=== PATIENT | female | born 1980 | race Caucasian/White ===

== ENCOUNTER 2023-05-16 14:21 | Emergency (ER) | payer OTHER, SELFPAY ==
--- NOTE | ~2023-05-16 | XR_ITS ---
EXAMINATION: XR chest 2V 05/16/2023 16:13 INDICATION: Right posterior back pain. History of kidney infection. PROCEDURE: 2 view chest COMPARISON: No prior studies for comparison. FINDINGS: The lungs are clear. The cardiomediastinal silhouette is within normal limits. There are no pleural effusions. There is no pneumothorax suspected. IMPRESSION: 1: NO ACUTE CARDIOPULMONARY DISEASE. Reviewed, dictated and finalized at location A. 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
--- NOTE | ~2023-05-16 | CT_ITS ---
EXAMINATION: CT abdomen pelvis w con DATE: 05/16/2023 16:12 INDICATION: Abdominal pain TECHNIQUE: Computed tomography (CT) of the abdomen and pelvis was performed with 100 cc Omnipaque 350 intravenous contrast. The dose-length product was 267.34 mGy-cm. Automated exposure control and iter ative reconstruction technique were employed. COMPARISON: None. FINDINGS: Lung bases unremarkable. Heart size normal. No significant pleural or pericardial effusion. The liver, spleen, pancreas, adrenal glands and kidneys are unremarkable. Gallbladder is present. No nobstructive bowel gas pattern. There is a 1.7 cm left ovarian cyst. No free fluid or free air. Colon ic diverticulosis without evidence for diverticulitis. No significant vascular abnormality. No lympha denopathy. Gallbladder is present. No acute osseous abnormality. IMPRESSION: 1. No acute abdominal abnormality. Reviewed, dictated and finalized at location A. ET ATTENDANT
[2023-05-16 14:23] VITALS: BP 114/77; PULSE 80; RESP 16; TEMP 36.3; O2SAT 100
--- NOTE | 2023-05-16 14:53 | ED.ABDPAIN ---
HPI - Abdominal Pain General Chief Complaint: Abdominal Pain Stated Complaint: KNOWN KIDNEY INFECTION, ABD PAIN Time Seen by Provider: 05/16/23 14:52 Source: patient History of Present Illness HPI narrative: 43 YEARS OLD FEMALE PRESENTS WITH RIGHT FLANK PAIN STARTED 1 WEEK AGO, TESTED POSITIVE FOR URINARY TRACT INFECTION 3 DAYS AGO AND STARTED ON CIPRO WITHOUT IMPROVEMENT. PATIENT REPORTED NO AGGRAVATING OR RELIEVING FACTORS. SHE DENIES ANY FEVER, CHILLS, NAUSEA, VOMITING, DIARRHEA, CONSTIPATION. PATIENT DENIES ANY RECENT PHYSICAL ACTIVITIES. PATIENT DROVE HERSELF TO THE EMERGENCY ROOM Related Data Allergies Allergy/AdvReac Type Severity Reaction Status Date / Time No Known Allergies Allergy Unverified 04/20/17 17:50 Review of Systems Review of Systems: All systems reviewed & are unremarkable except as noted in HPI and below Exam Narrative: GENERAL APPEARANCE: WELL-DEVELOPED, WELL-NOURISHED SKIN: NORMAL COLOR HEAD: NORMOCEPHALIC, NONTRAUMATIC EYES: CLEAR CONJUNCTIVA ENT: OROPHARYNX NORMAL, EARS NORMAL, NOSE NORMAL NECK: SUPPLE, NONTENDER CHEST AND RESPIRATORY: AIRWAY PATENT, NO RESPIRATORY DISTRESS, NO ACCESSORY MUSCLE USE. DIFFUSE TENDERNESS RIGHT THORACIC BACK, NO BRUISES OR RASH HEART: REGULAR RATE/RHYTHM ABDOMEN: SOFT, DIFFUSE TENDERNESS RIGHT LOWER QUADRANT, RIGHT UPPER QUADRANT, NO GUARDING REBOUND, QUITE BOWEL SOUNDS. VASCULAR: NORMAL PERIPHERAL PULSES, NORMAL CAPILLARY REFILL. MUSCULOSKELETAL: NORMAL RANGE OF MOTION, NONTENDER BACK NEUROLOGIC: ALERT AND ORIENTED ?3, VENDOR MANAGEMENT CONSULTANT IS NORMAL TESTED, NO GROSS MOTOR DEFICIT Course Reevaluation(s) Reevaluation #1: FEELING MUCH BETTER AFTER IV MORPHINE AND ZOFRAN. Date: 05/16/23 Time: 15:49 Vital Signs Vital signs: Vital Signs Temperature 36.3 C L 05/16/23 14:23 Pulse Rate 80 05/16/23 14:23 Respiratory Rate 16 05/16/23 14:23 Blood Pressure 114/77 05/16/23 14:23 Pulse Oximetry 100 05/16/23 14:23 Oxygen Delivery Room Air 05/16/23 14:23 Temperature 37.1 C 05/16/23 15:23 Pulse Rate 73 05/16/23 15:23 Respiratory Rate 19 05/16/23 15:23 Blood Pressure 107/62 05/16/23 15:23 Pulse Oximetry 99 05/16/23 15:23 Oxygen Delivery Room Air 05/16/23 15:23 MDM - Abdominal Pain MDM Narrative Medical decision making narrative: PATIENT PRESENTS WITH THE ABOVE SYMPTOMS, VITAL SIGNS STABLE, PHYSICAL EXAMINATION SHOWED MILD TO MODERATE TENDERNESS RIGHT ABDOMEN, RIGHT FLANK, RIGHT THORACIC BACK, DIFFERENTIAL DIAGNOSIS, APPENDICITIS, DIVERTICULITIS, CHOLECYSTITIS, PNEUMONIA, KIDNEY STONE, URINARY TRACT INFECTION BLOOD WORKUP TODAY SHOWED NO SIGNIFICANT ABNORMALITY TO EXPLAIN PATIENT'S CONDITION, CHEST X-RAY AND CT ABDOMEN AND PELVIS WITH IV CONTRAST SHOWED NO ACUTE ABNORMALITIES. PATIENT WAS ADVISED TO TAKE TYLENOL, IBUPROFEN NEEDED, MUSCULAR PAIN IS A POSSIBILITY. Differential Diagnosis Differential diagnosis: Likely abdominal pain, acute appendicitis, calculus of kidney, constipation and diverticulitis Medical Records Attestation: I reviewed the patient's medical records. Lab Data Attestation: I reviewed the patient's lab results. 05/16/23 15:09 05/16/23 15:09 Labs: Lab Results 05/16/23 05/16/23 Range/Units 15:09 17:20 WBC 8.0 (4.5-10.0) K/mm3 RBC 4.33 (4.2-5.4) M/mm3 Hgb 10.1 L (12.0-15.0) g/dL Hct 34.0 L (37.0-47.0) % MCV 78.5 L (80-100) fl MCH 23.3 L (26-34) pg MCHC 29.7 L (32-36) g/dl RDW 15.5 H (11.5-14.5) % Plt Count 368 (150-375) k/mm3 MPV 11.1 H (7.4-10.4) fl Immature Gran % (Auto) 0.2 (0-0.5) % Neut % (Auto) 64.8 (45.5-73.1) % Lymph % (Auto) 26.9 (18.3-
[2023-05-16] MEDS: SODIUM CHLORIDE 0.9% IV 1,000 ML 999 ML IV CONT (15:13)
[2023-05-16] MEDS: ONDANSETRON INJ 4 MG/2 ML VIAL IV PUSH (15:15)
[2023-05-16] MEDS: MORPHINE SULFATE (*CRX) 4 MG/ML INJ IV PUSH (15:15)
[2023-05-16 15:19] LABS: Basophils Percent Auto 0.5 % (0.2-1.2); Eosinophils Absolute Auto 0.2 K/mm3 (0-0.3); Hemoglobin 10.1 g/dL (12.0-15.0); Immature Granulocyte Absolute 0.02 K/mm3 (0.00-0.031); Immature Granulocyte Percent A 0.2 % (0-0.5); Lymphocytes Absolute Auto 2.16 K/mm3 (0.9-3.2); Lymphocytes Percent Auto 26.9 % (18.3-44.2); Mean Corpuscular HGB Conc 29.7 g/dl (32-36); Mean Corpuscular Hemoglobin 23.3 pg (26-34); Mean Corpuscular Volume 78.5 fl (80-100); Mean Platelet Volume 11.1 fl (7.4-10.4); Monocytes Absolute Auto 0.5 K/mm3 (0.1-0.6); Monocytes Percent Auto 5.6 % (2.6-8.5); Neutrophils Absolute Auto 5.2 K/mm3 (1.3-6.7); Neutrophils Percent Auto 64.8 % (45.5-73.1); Platelet Count Result 368 k/mm3 (150-375); Red Blood Count 4.33 M/mm3 (4.2-5.4); Red Cell Distribution Width 15.5 % (11.5-14.5)
[2023-05-16 15:23] VITALS: BP 107/62; PULSE 73; RESP 19; TEMP 37.1; O2SAT 99
[2023-05-16 15:36] LABS: Hypochromasia 1+ (NORMAL); Platelet Estimate Adequate (Adequate)
[2023-05-16 15:37] LABS: Ovalocytes 1+ (NORMAL)
[2023-05-16 15:39] LABS: Alanine Aminotransferase 19 U/L (6-35); Alkaline Phosphatase 66 U/L (38-126); Anion Gap 7 mmol/L (8-16); Aspartate Amino Transferase 29 U/L (14-36); Bilirubin,Total 0.3 mg/dL (0.2-1.3); Blood Urea Nitrogen 13 mg/dL (7-17); Carbon Dioxide 25 mmol/L (22-30); Chloride 106 mmol/L (98-107); Estimated Glomerular Filt Rate > 60; Glucose 99 mg/dL (65-110); Lipase 112 U/L (23-300); Potassium 3.7 mmol/L (3.4-5.0); Sodium 138 mmol/L (137-145)
[2023-05-16 15:45] LABS: Schistocytes None Seen (NORMAL)
[2023-05-16 17:38] LABS: Appearance Urine Turbid (Clear); Bacteria Urine None Seen /hpf; Bilirubin Urine Negative (Negative); Blood Urine 1+ (Negative); Color Urine Yellow (Yellow); Glucose Urine UA Negative (Negative); Ketones Urine Negative (Negative); Leukocyte Esterase Ur Negative LEU/UL (Negative); Nitrate Urine Negative (Negative); Non Pathogenic Casts 0-2; Protein Urine Negative (Negative); Specific Grav Ur 1.011 (1.001-1.035); Squamous Epithelial Cell Urine Occasional /hpf (Few); Urobilinogen Urine 0.2 mg/dL (<2.0); WBC Urine 0-5 /hpf; pH Urine 7.5 (5.0-9.0)
[2023-05-16 17:39] LABS: Add Urine Microscopic? YES
[2023-05-16 18:00] VITALS: BP 114/79; PULSE 69; RESP 20; O2SAT 100
== END 2023-05-16 18:01 | disposition home or self-care (01) ==
PROVIDERS: Emergency Provider Emergency Medicine; PCP Family Medicine
DX: R10.9 Unspecified abdominal pain (principal)
CPT/HCPCS: 36415; 71046; 74177; 80053; 81001; 81025; 83690; 85025; 96361; 96374; 96375; 99284; J2270; J2405; J7030; Q9967

== ENCOUNTER 2025-03-23 09:57 | Emergency (ER) | payer OTHER, SELFPAY ==
--- NOTE | ~2025-03-23 | XR_ITS ---
Examination: XR ankle LT min 3V Clinical History: injury Comparison: None Technique: 4 views left ankle Findings/impression: 1. No fracture or dislocation left ankle. 2. Ankle mortise maintained. 3. Lateral soft tissue swelling Reviewed, dictated and finalized at location R.
[2025-03-23 10:02] VITALS: BP 116/63; PULSE 71; RESP 14; TEMP 36.6; O2SAT 100
--- NOTE | 2025-03-23 11:02 | ED_ITS ---
HPI - Extremity Injury (Lower) General Chief Complaint: Extremity Injury, Lower Stated Complaint: left ankle injury Time Seen by Provider: 03/23/25 10:45 History of Present Illness HPI Narrative: Patient is a 44-year-old female who presents ER with left ankle pain. She was stepping off a curb when she rolled her ankle last night. She fell forward. No other injury. No numbness or tingling. Has pain with bearing weight and has swelling today. Related Data Allergies Allergy/AdvReac Type Severity Reaction Status Date / Time No Known Allergies Allergy Verified 03/23/25 10:17 Review of Systems Constitutional: Constitutional: Reports no additional constitutional complaints Musculoskeletal: Musculoskeletal: Reports no additional musculoskeletal complaints Neurologic: Reports system reviewed and no additional complaints, except as documented PMFSH Past Medical History Medical History (Updated 03/23/25 @ 11:05 by Ranjit Erickson MD) Healthy female adult Surgical History Surgical History (Updated 03/23/25 @ 11:02 by Ranjit Erickson MD) No history of previous surgery Exam Narrative: GENERAL: Well-appearing, well-nourished, and in no acute distress. HEAD: Normocephalic, atraumatic. HEART: Regular rate and rhythm. Normal peripheral pulses. EXTREMITIES: Normal range of motion. No edema. Swelling of the soft tissue over the lateral malleolus of the left ankle and mildly anteriorly. Neurovascular intact SKIN: Warm, dry, no rash. NEURO: Alert and oriented x3. PSYCH: Normal mood and affect. Course Course Emergency Course: Informed of results. Given reassurance. Discussed outpatient splint purchase Vital Signs Vital signs: Vital Signs Temperature 97.8 F 03/23/25 10:02 Pulse Rate 71 03/23/25 10:02 Respiratory Rate 14 03/23/25 10:02 Blood Pressure 116/63 03/23/25 10:02 Pulse Oximetry 100 03/23/25 10:02 Oxygen Delivery Room Air 03/23/25 10:02 Temperature 97.8 F 03/23/25 10:02 Pulse Rate 71 03/23/25 10:02 Respiratory Rate 14 03/23/25 10:02 Blood Pressure 116/63 03/23/25 10:02 Pulse Oximetry 100 03/23/25 10:02 Oxygen Delivery Room Air 03/23/25 10:02 MDM - Extremity Injury (Lower) Differential Diagnosis Differential diagnosis: Likely ankle sprain and strain and ankle fracture Imaging Data Radiologist's impression: Examination: XR ankle LT min 3V Clinical History: injury Comparison: None Technique: 4 views left ankle Findings/impression: 1. No fracture or dislocation left ankle. 2. Ankle mortise maintained. 3. Lateral soft tissue swelling Reviewed, dictated and finalized at location R. Discharge Plan Discharge Clinical Impression: Ankle sprain and strain Patient Disposition: Home Condition: Stable Instructions: Ankle Sprain (ED), P.R.I.C.E. Treatment (ED) Additional Instructions: Return the ER if you have new injury, you have chest pain shortness of breath, or you have additional concerns. Take ibuprofen or naproxen for pain. Purchase a splint for stability/support. Patient Language: Solomon Islander Follow-up/Referrals: Cami,Shalom Melgar MD [Primary Care Provider] - 1 Week
--- OUTSIDE RECORDS SUMMARY | 2025-03-23 11:13 | XMS_ITS | Encounter Summary ---
Author Organization [facility] Address [address] [place] [id number] Care Team Providers Care Utility Worker [place] Name Role Phone Shalom Almanza MD Primary Care Provider [phone] Encounter Details Date Type Department Care Team (Latest Contact Info) Description 03/28/2018 Abstract [facility] Terrence Paiz MD Social History Tobacco Use Types Packs/Day Years Used Date Smoking Tobacco: Never Assessed Comments Unknown Sex and Gender Information Value Date Recorded Sex Assigned at Female 06/21/2024 2:42 PM HOME SALES CONSULTANT Legal Sex Female 8:07 PM CDT Gender Identity Female 06/21/2024 2:42 PM HOME SALES CONSULTANT Sexual Orientation Not on file documented as of this encounter Plan of Treatment Not on file documented as of this encounter Visit Diagnoses Not on filedocumented in this encounter Additional Health Concerns Infection Onset Date Last Indicated Resolved Time COVID-19 Rule Out 06/18/2020 06/18/2020 06/19/2020 7:50 PM HOME SALES CONSULTANT COVID-19 Rule Out 02/17/2024 02/17/2024 02/17/2024 11:05 AM CDT Respiratory Rule Out 11/09/2024 11/09/2024 025 9:25 AM CDT documented as of this encounter Care Teams Utility Worker [place] [place] Relationship Specialty Start Date End Date Shalom Almanza MD [address] [facility] [address] [place] [address] PCP - General FAMILY PRACTICE 06/06/17 documented as of this encounter
--- OUTSIDE RECORDS SUMMARY | 2025-03-23 11:15 | XMS_ITS | Data Portability ---
Author Organization [facility] [employer] , [facility] Address [address] [place] [address] Assessment Encounter Date Assessment Date Assessment LastModified by Organization Details LastModified Time 07/17/2021 07/17/2021 41 y.o. here for annual exam. - Pap /HPV and sti screening collected. discussed natural course of HPV infection, ASCCP guidelines. - Contraceptive counseling: Tubal - Routine labs done with PCP - Mammo needed. - RTO for annual or PRN [email or web address] Not available 07/17/2021 15:50:19 Plan of Treatment Reminders Order Date Submit Date Provider Last Modified By Organization Details Last Modified Time Details Appointments None recorded. Lab pap, IG + CT/NG/TV + HPV mRNA E6/E7 2021 022 [employer] [facility], [address], [place], [address], 13:33:43 Referral None recorded. Procedures None recorded. Surgeries None recorded. Imaging None recorded. Medication Orders ibuprofen 800 mg tablet 2023 025 [id number], [address], [place], [place], [id number], 5 10:18:37 Patient TargetsNo targets recorded. Patient Instructions Encounter Date Encounter Id Patient Instructions Last Modified By Organization Details Last Modified Time 07/17/2021 [id number] Discussed pap guidelines. Reviewed contraceptive options if desired. If desired, STI testing options discussed with patient, including limitations of HSV testing. Encourage patient to see PCP/dermatology yearly. Encouraged healthy habits including healthy diet and exercise with limited alcohol use. Refrain from smoking, vaping, and the use of recreational drugs. Will plan to notify patient of results via the portal, if applicable. [email or web address] Not available 07/17/2021 15:14:00 03/05/2024 [id number] A healthy lifestyle: care instructions [email or web address] Not available 03/05/2024 13:03:18 Following the [employer] Food Guide: Care Instructions [email or web address] Not available 03/05/2024 13:03:18 exercise program : getting started bnotzke Not available 03/05/2024 13:03:18 dysmenorrhea education bnotzke Not available 03/05/2024 13:03:18 painful menstrua l cramps: care instructions [email or web address] Not available 03/05/2024 13:03:18 control counseling bnotzke Not available 03/05/2024 13:03:18 Reason for Referral None Reported. Results Created Date Observation Date Name Description Value Unit Range Abnormal Flag Note LastModifiedBy Organization Detail LastModifiedTime 07/17/19 22 07/21/2021 THINP REP TIS PAP AND HPV MRNA E6/E7 , CT/NG , TRICH clinical information: normal Infor matio n not provi ded Not Available [address], [address], 07/21/2021 13:33:43 07/17/19 22 07/21/2021 THINP REP TIS PAP AND HPV MRNA E6/E7 , CT/NG , TRICH LMP: normal NONE GIVEN Not Available [address], [address], 07/21/2021 13:33:43 07/17/19 22 07/21/2021 THINP REP TIS PAP AND HPV MRNA E6/E7 , CT/NG , TRICH prev. Pap: normal NONE GIVEN Not Available [address], [address], 07/21/2021 13:33:43 07/17/19 22 07/21/2021 THINP REP TIS PAP AND HPV MRNA E6/E7 , CT/NG , TRICH prev. BX: normal NONE GIVEN Not Available [facility] [address] [place], [address], 07/21/2021 13:33:43 07/17/19 22 07/21/2021 THINP REP TIS PAP AND HPV MRNA E6/E7 , CT/NG , TRICH source: normal None given Not Available [address] [address] [place], [address], 07/21/2021 13:33:43 07/17/19 22 07/21/2021 THINP REP TIS PAP AND HPV MRNA E6/E7 , CT/NG , TRICH statement of adequacy: normal Satis facto ry for evalu ation . Endoc ervic al/tr ansfo rmati on zone compo nent prese nt. Age and/o r menst rual statu s not provi ded Not Available [address] [address] [place], [address], 07/21/2021 13:33:43 07/17/19 22 07/21/2021 THINP REP TIS PAP AND HPV MRNA E6/E7 , CT/NG , TRICH interpretati on/result: normal Negat jan for intra epith elial lesio n or peyton alberto . Not Available [facility] [address] [place], [address], 07/21/2021 13:33:43 07/17/19 22 07/21/2021 THINP REP TIS PAP AND HPV MRNA E6/E7 , CT/NG , TRICH comment: normal This Pap test has been evalu ated with compu ter [employer] . Not Available [address] [place], [address], 07/21/2021 13:33:43 07/17/19 22 07/21/2021 THINP REP TIS PAP AND HPV MRNA E6/E7 , CT/NG , TRICH cytotechnolo gist: normal ESPINAL, CT( CP) CT Scree leta locat ion: [id number] [place] [address] Not Available [facility] [address] [place], [address], 07/21/2021 13:33:43 07/17/19 22 07/21/2021 THINP REP TIS PAP AND HPV MRNA E6/E7 , CT/NG , TRICH comment EXPLA NATOR Y NOTE: The Pap is a scree leta test for cervi kevin cance r. It is not a diagn ostic test and is subje ct to false negat jan and false posit jan resul ts. It is most relia ble when a satis facto ry sampl e, regul marj obtai dmitri, is submi tted with relev ant clini kevin findi ngs and histo ry, and when the Pap resul t is evalu ated along with histo holly and curre nt clini kevin infor matio n. Not Available [facility] [address] [place], [address], 07/21/2021 13:33:43 07/17/19 22 07/21/2021 THINP REP TIS PAP AND HPV MRNA E6/E7 , CT/NG , TRICH HPV MRNA E6/E7 Not Detect ed not detect ed normal Metho dolog y: Trans cript ion-M ediat ed Ampli ficat ion This assay detec ts E6/E7 viral messe nger RNA (mRNA ) from 14 high- risk HPV types (16,1 8,31, 33,35 ,39,4 5,51, 52,56 ,58,5 9,66, 68). The kendal tical perfo rmanc e josh cteri stics of this assay have been deter mined by [facility]. The modif icati ons have not been clear ed or appro wally by the FDA. This assay has been valid ated pursu ant to the CLIA regul ation s and is used for clini kevin purpo ses. For addit ional infor richie grimaldo e refer to http: //jose juan cordero.que stdia gnost ics.c om/fa q/FAQ 129v1 (This link if provi ded for infor heather cordero/ educa eduardo l purpo ses only. ) Not Available [facility] [address] [address] [place], [address], 07/21/2021 13:33:43 07/17/19 22 07/21/2021 THINP REP TIS PAP AND HPV MRNA E6/E7 , CT/NG , TRICH chlamydia trachomatis RNA, tma, urogenital NOT DETECT ED not detect ed normal Not Available [facility] [address] [address] [place], [address], 07/21/2021 13:33:43 07/17/19 22 07/21/2021 THINP REP TIS PAP AND HPV MRNA E6/E7 , CT/NG , TRICH neisseria gonorrhoeae RNA, tma, urogenital NOT DETECT ED not detect ed normal Not Available [facility] [address] [address] [place], [address], 07/21/2021 13:33:43 07/17/19 22 07/21/2021 THINP REP TIS PAP AND HPV MRNA E6/E7 , CT/NG , TRICH comment The kendal tical perfo rmanc e josh cteri stics of this assay , when used to test SureP ath(T M) speci mens have been deter mined by [facility]. The modif icati ons have not been clear ed or appro wally by the FDA. This assay has been valid ated pursu ant to the CLIA regul ation s and is used for clini kevin purpo ses. For addit ional infor richie grimaldo e refer to https ://ed ucati on.qu alberto [employer]. com/f aq/FA Q154 (This link is being provi ded for infor heather cordero/ clair merino purpo ses only. ) Not Available [facility] [address] [address] [place], [address], 07/21/2021 13:33:43 07/17/19 22 07/21/2021 THINP REP TIS PAP AND HPV MRNA E6/E7 , CT/NG , TRICH trichomonas vaginalis, ql tma, Pap vial NOT DETECT ED not detect ed normal The kendal tical perfo rmanc e josh cteri stics of this assay have been deter mined by [facility]. The modif icati ons have not been clear ed or appro wally by the FDA. This assay has been valid ated pursu ant to the CLIA regul ation s and is used for clini kevin purpo ses. For addit ional infor richie grimaldo refer to http: //[facility] jaden cordero.que stdia gnost ics.c om/ faq/T eleazar birch tma (This link is being provi ded for infor heather cordero/ educa eduardo l purpo ses only. ) Not Available [employer] [facility] [address] [place], [place] [address], [address], 07/21/2021 13:33:43 Result Notes None recorded. Problems Name Problem SNOMED Code Status Onset Date Resolution Date Notes Provider Name and Address Organization Details Recorded Time Pain of breast 26138294 Completed 201210/19/2012 Breast tenderne ss; Progress : Stable Added By: Greg Mckee Add to Current Problems : NO ProblemS tatus: Resolve Not Available [facility] 2 22:11:45 Nausea and vomiting [id number] Completed 201202/14/2013 Nausea and vomiting ; Progress : Stable Added By: Jazmyn Muñoz Add to Current Problems : NO ProblemS tatus: Resolve Not Available [facility] 2 22:11:39 Female genital organ symptoms [id number] Completed 201208/23/2013 pelvic pain; Progress : Stable Added By: Sharri Lugo Add to Current Problems : NO ProblemS tatus: Resolve Not Available [facility] 2 22:11:58 Anemia during pregnanc y - baby not yet delivere d [id number] Completed 201208/23/2013 Anemia complica ting pregnanc y; Location : None Progress : Stable Added By: Melani Bauer Add to Current Problems : NO ProblemS tatus: Resolve Anemia complica ting pregnanc y; Location : None Progress : Stable Added By: Melani Bauer Add to Current Problems : NO ProblemS tatus: Resolve; Start Date : 03/21/20 13 Anemi a complica ting pregnanc y; Location : None Progress : Stable Added By: Melani Bauer Add to Current Problems : NO ProblemS tatus: Resolve; Start Date : 02/29/20 13 Anemi a complica ting pregnanc y; Location : None Progress : Stable Added By: Melani Bauer Add to Current Problems : NO ProblemS tatus: Resolve; Start Date : 02/08/20 13 Anemi a complica ting pregnanc y; Location : None Progress : Stable Added By: Melani Bauer Add to Current Problems : NO ProblemS tatus: Resolve; Start Date : 01/25/20 13 Not Available [facility] 2 22:11:40 Primigra lianna [id number] Completed 201208/23/2013 Pregnanc y 1st Normal; Location : None Severity : Moderate Progress : Stable Added By: Jazmyn Muñoz Add to Current Problems : NO ProblemS tatus: Resolve Not Available [facility] 1 01:50:01 Primigra lianna [id number] Completed 201208/23/2013 Pregnanc y 1st Normal; Location : None Progress : Stable Added By: Candi Del Angel Add to Current Problems : NO ProblemS tatus: Resolve Pregnanc y 1st Normal; Location : None Progress : Stable Added By: Jazmyn Muñoz Add to Current Problems : NO ProblemS tatus: Resolve; Start Date : 04/03/20 13 Pregn teetee 1st Normal; Location : None Progress : Stable Added By: Melani Bauer Add to Current Problems : NO ProblemS tatus: Resolve; Start Date : 03/28/20 13 Pregn teetee 1st Normal; Location : None Progress : Stable Added By: Melani Bauer Add to Current Problems : NO ProblemS tatus: Resolve; Start Date : 03/21/20 13 Pregn teetee 1st Normal; Location : None Progress : Stable Added By: Linda Cosme Add to Current Problems : NO ProblemS tatus: Resolve; Start Date : 03/14/20 13 Pregn teetee 1st Normal; Location : None Progress : Stable Added By: Melani Bauer Add to Current Problems : NO ProblemS tatus: Resolve; Start Date : 02/29/20 13 Pregn teetee 1st Normal; Location : None Progress : Stable Added By: Gianna Ríos Add to Current Problems : NO ProblemS tatus: Resolve; Start Date : 02/15/20 13 Pregn teetee 1st Normal; Location : None Progress : Stable Added By: Melani Bauer Add to Current Problems : NO ProblemS tatus: Resolve; Start Date : 02/08/20 13 Pregn teetee 1st Normal; Location : None Progress : Stable Added By: Melani Bauer Add to Current Problems : NO ProblemS tatus: Resolve; Start Date : 01/25/20 13 Pregn teetee 1st Normal; Location : None Progress : Stable Added By: Melani Bauer Add to Current Problems : NO ProblemS tatus: Resolve; Start Date : 01/10/20 13 Pregn teetee 1st Normal; Location : None Progress : Stable Added By: Jazmyn Muñoz Add to Current Problems : NO ProblemS tatus: Resolve; Start Date : 12/16/19 13 Pregn teetee 1st Normal; Location : None Progress : Stable Added By: Jazmyn Muñoz Add to Current Problems : NO ProblemS tatus: Resolve; Start Date : 11/17/19 13 Pregn teetee 1st Normal; Location : None Progress : Stable Added By: Jazmyn Muñoz Add to Current Problems : NO ProblemS tatus: Resolve; Start Date : 10/20/19 13 Pregn teetee 1st Normal; Location : None Progress : Stable Added By: Jazmyn Muñoz Add to Current Problems : NO ProblemS tatus: Resolve; Start Date : 09/27/19 13 Pregn teetee 1st Normal; Location : None Progress : Stable Added By: Jazmyn Muñoz Add to Current Problems : NO ProblemS tatus: Resolve; Start Date : 09/01/19 13 Not Available [facility] 2 22:11:44 Oral contrace ption NOS Completed 201308/23/2013 Initiati on of oral contrace ptives; Location : None Severity : Moderate Progress : Stable Added By: Melani Bauer Add to Current Problems : NO ProblemS tatus: Resolve Not Available [facility] 1 05:45:39 Contrace ption care manageme nt Completed 201411/09/2014 Visits for contrace ptive manageme nt; unspecif ied; Location : None Progress : Stable Added By: Melani Bauer Add to Current Problems : YES ProblemS tatus: Resolve Not Available [facility] 2 22:12:01 Gestatio n period, 39 weeks [id number] Completed 201503/26/2016 39 weeks gestatio n of pregnanc y; Progress : Stable Added By: Alexandra Bowie Add to Current Problems : NO ProblemS tatus: Resolve Not Available [facility] 2 22:12:02 Normal pregnanc y in multigra lianna [id number] Completed 201503/26/2016 Encounte r for supervis ion of other normal pregnanc y, third trimeste r; Progress : Stable Added By: Alexandra Bowie Add to Current Problems : NO ProblemS tatus: Resolve Not Available [facility] 2 22:12:06 Normal pregnanc y [id number] Completed 201503/26/2016 Medical visit for normal pregnanc y; Location : None Progress : Stable Added By: Alexandra Bowie Add to Current Problems : YES ProblemS tatus: Resolve Not Available [facility] 2 22:11:45 Antenata l screenin g Completed 201503/26/2016 Antenata l screenin g; unspecif ied; Location : None Progress : Stable Added By: Alexandra Bowie Add to Current Problems : YES ProblemS tatus: Resolve Encounte r for antenata l screenin g of mother; Progress : Stable Added By: Alexandra Bowie Add to Current Problems : NO ProblemS tatus: Resolve Not Available [facility] 2 22:11:58 Pregnanc y with other medical conditio n Completed 201503/26/2016 Incident al pregnanc y; Severity : Moderate Progress : Stable Added By: Ronald Ha Add to Current Problems : NO ProblemS tatus: Resolve Not Available [facility] 1 05:45:37 Eruption [id number] Completed 201510/26/2015 Rash and other nonspeci fic skin eruption ; Progress : Stable Added By: Ronald Ha Add to Current Problems : NO ProblemS tatus: Resolve Rash; Location : None Progress : Stable Added By: Ronald Ha Add to Current Problems : NO ProblemS tatus: Resolve Not Available [facility] 2 22:12:[address] Concept Completed 201503/26/2016 Encounte r for supervis ion of normal pregnanc y, unspecif ied, second trimeste r; Progress : Stable Added By: Ronald Ha Add to Current Problems : NO ProblemS tatus: Resolve Not Available [facility] 2 22:11:39 Pregnanc y [id number] Completed 201503/26/2016 Incident al pregnanc y; Location : None Progress : Stable Added By: Ronald Ha Add to Current Problems : YES ProblemS tatus: Resolve Not Available [facility] 2 22:11:40 Pityrias is rosea [id number] Completed 201510/26/2015 Pityrias is rosea; Location : None Progress : Stable Added By: Melani Bauer Add to Current Problems : YES ProblemS tatus: Resolve Not Available [facility] 2 22:11:49 Uterine size for dates discrepa ncy Completed 201503/26/2016 Uterine size-vesta e discrepa ncy, third trimeste r; Progress : Stable Added By: Jazmyn Muñoz Add to Current Problems : NO ProblemS tatus: Resolve Not Available [facility] 2 22:11:40 Uterine size for dates discrepa ncy [id number] Completed 201503/26/2016 Uterine size-vesta e discrepa ncy, third trimeste r; Progress : Stable Added By: Jazmyn Muñoz Add to Current Problems : NO ProblemS tatus: Resolve Not Available [facility] 2 22:11:40 Procedur e by method Completed 201503/26/2016 Encounte r for other general counseli ng and advice on contrace ption; Progress : Stable Added By: Alexandra Bowie Add to Current Problems : NO ProblemS tatus: Resolve Visit for counseli ng and contrace ption advice; other; Location : None Progress : Stable Added By: Alexandra Bowie Add to Current Problems : YES ProblemS tatus: Resolve Not Available [facility] 2 22:12:01 Uses contrace ption [id number] Completed 201503/26/2016 Visit for counseli ng and contrace ption advice; other; Severity : Moderate Progress : Stable Added By: Alexandra Bowie Add to Current Problems : NO ProblemS tatus: Resolve Not Available [facility] 1 05:45:48 Surgical follow-u p - normal [id number] Completed 201512/26/2016 Follow-u p exam followin g surgery; Severity : Moderate Progress : Stable Added By: Shaneka Rosado Add to Current Problems : NO ProblemS tatus: Resolve Not Available [facility] 1 05:45:[address] Concept Completed 201512/26/2016 Encounte r for follow-u p examinat ion after complete d treatmen t for conditio ns other than malignan t neoplasm ; Progress : Stable Added By: Shaneka Rosado Add to Current Problems : NO ProblemS tatus: Resolve Not Available [facility] 2 22:11:48 Dysuria [id number] Completed 201704/14/2018 Dysuria; Progress : Stable Added By: Isela Soto Add to Current Problems : NO ProblemS tatus: Resolve Painful micturit ion, unspecif ied; Progress : Stable Added By: Isela Soto Add to Current Problems : NO ProblemS tatus: Resolve Not Available [facility] 2 22:12:07 Syphilis test finding [id number] Completed 201704/14/2018 Encounte r for screenin g for infectio ns with a predomin antly sexual mode of transmis ruben; Progress : Stable Added By: Melani Bauer Add to Current Problems : NO ProblemS tatus: Resolve Not Available [facility] 2 22:11:34 Mel infectio n of genital region Completed 201704/14/2018 Candidia sis of vulva and vagina; Progress : Stable Added By: Melani Bauer Add to Current Problems : NO ProblemS tatus: Resolve Not Available [facility] 2 22:11:44 Candidal vulvovag initis [id number] Completed 201704/14/2018 Yeast vaginiti s; Progress : Stable Added By: Melani Bauer Add to Current Problems : NO ProblemS tatus: Resolve Not Available [facility] 2 22:11:34 Venereal disease screenin g Completed 201704/14/2018 Screenin g for STDs; Progress : Stable Added By: Melani Bauer Add to Current Problems : NO ProblemS tatus: Resolve Not Available [facility] 2 22:12:06 Notes:Follow-up exam followi ng surgery (V67.09) ; OnsetDate: 03/26/2016; ResolvedDate: 12/26/2016; Progress: Stable Added By: Shaneka Mendez Add to Current Problems: NO ProblemStatus: Resolve Initiation of oral contraceptives (V25.01) ; OnsetDate: 05/25/2013; ResolvedDate: 08/23/2013; Progress: Stable Added By: Melani Bauer Add to Current Problems: NO ProblemStatus: Resolve Visit for routine follow-up (V24.2) ; OnsetDate: 05/25/2013; ResolvedDate: 08/23/2013; Progress: Stable Added By: Chel Mendez Add to Current Problems: NO ProblemStatus: Resolve screening; unspecified (V28.9) ; OnsetDate: 12/15/2012; ResolvedDate: 08/23/2013; Progress: Stable Added By: Sharri Lugo Add to Current Problems: NO ProblemStatus: Resolve Problem Notes None recorded. Procedures Surgical History Date Name Laterality Status Provider Name and Address Organization Details Recorded Time 06/21/19 25 Urodynamic Testing completed Alba Pino [facility] 06/21/2024 13:12:57 03/01/20 24 Most Recent Mammogram completed Loren Hilario [facility] 03/05/2024 12:36:52 07/17/19 22 Date of Last Pap Smear completed SONJA CASANOVA [address], [place], [address], [facility] [employer] IV 03/05/2024 12:48:43 Sterilization completed Cynthia Pulido [facility] [employer] [facility] IV 07/17/2021 15:14:42 Imaging Results None recorded. Procedure Notes None recorded. Medical Equipment None Reported. Allergies No known drug allergies Medications Name Sig Start Date Stop Date Status Note LastModified by Organization Details LastModified Time status covid-19/ flu a-b antigen tst TEST DIRECTED TODAY 03/05 completed Not Available Not Available Not Available oxybutyni n chloride ER 10 mg tablet,ex tended release 24 hr TAKE 1 TABLET BY MOUTH EVERY DAY active Not Available Not Available No t Available ibuprofen 800 mg tablet TAKE 1 TABLET BY MOUTH THREE TIMES DAILY NEEDED 06/12 completed Not Available Not Available Not Available fluconazo le 150 mg tablet Take 1 tab by mouth now, repeat in 3 days 03/05 completed Not Available Not Available Not Available ciproflox acin 500 mg tablet 03/05 completed Not Available Not Available Not Available triamcino lone acetonide 0.1 % topical cream Apply thin film to affected area bid 10/25 completed Triamcin olone Acetonid e 0.1% Cream RxNorm: 3344574 Allow Substitu tion: True Refill Denied: No For Problem: Pityrias is rosea Not Available Not Available Not Available Vitamin tablet Take 1 taablet by mouth daily. 03/02 completed Multivit serrano Tablet Allow Substitu tion: True Refill Denied: No Not Available Not Available Not Available Zofran 8 mg tablet 1/2 tab po q 6 hrs PRN 10/10 completed Zofran 8mg Tablet RxNorm: [id number] Allow Substitu tion: True Refill Denied: No Not Available Not Available Not Available ferrous sulfate 325 mg (65 mg iron) tablet 1 P.O. BID 03/02 completed Ferrous Sulfate 325mg Tablets RxNorm: 964154 Allow Substitu tion: True Refill Denied: No Not Available Not Available Not Available methylpre dnisolone 4 mg tablets in a dose pack FOLLOW PACKAGE DIRECTIO NS active Not Available Not Available No t Available amoxicill in 875 mg-potass ium clavulana te 125 mg tablet 03/05 completed Not Available Not Available Not Available Bactrim DS 800 mg-160 mg tablet 1 po BID x 3 days 04/14 completed Bactrim DS 160mg/80 0mg Tablet RxNorm: [id number] Allow Substitu tion: True Refill Denied: No Not Available Not Available Not Available Lutera (28) 0.1 mg-20 mcg tablet Take 1 tablet(s ) by mouth daily as directed . 09/10 completed Lutera 20mcg/0. 1mg Tablet Allow Substitu tion: True Refill Denied: No Not Available Not Available Not Available Multivita mins 11/16 completed Multivit amins Allow Substitu tion: True Refill Denied: No Refill Note: Auto Aged Refill DateOccu rred: 09/27/19 13 Not Available Not Available Not Available cholecalc iferol (vitamin D3) 1,250 mcg (50,000 unit) capsule TAKE ONE CAPSULE BY MOUTH ONCE A WEEK 07/17 completed Not Available Not Available Not Available Zyrtec 10 mg capsule Take by oral route. active Not Available Not Available No t Available Diclegis 10 mg-10 mg tablet,de layed release 2 tabs PO q hs, if symptoms persist after 2 days, incr. to 1 tab po q am and 2 tabs po q hs 10/08 completed Diclegis 10mg/10m g Tablets, Delayed Release RxNorm: [id number] Allow Substitu tion: True Refill Denied: No Not Available Not Available Not Available ID NOW COVID-19 Test Kit TEST DIRECTED TODAY 07/17 completed Not Available Not Available Not Available Vitals Date Recorded Body height Provider Name an d Address Organization Details Last Updated DateTime 06/12/2024 149.86 cm Chastity Chow [facility] 06/12/2024 10:18:19 Date Recorded Body weight Body temperature Body mass index (BMI) Body height Systolic And Diastolic Provider Name and Address Organization Details Last Updated DateTime 07/17/2021 52198.93 g 97 [degF] 28.3 kg/m2 149.86 cm 120/72 mm[Hg] Cynthia Pulido achvr IV 15:22:17 Date Recorded Body height Provider Name an d Address Organization Details Last Updated DateTime 03/05/2024 149.86 cm Loren Rich achvr IV 03/05/2024 12:37:29 Social History Question Answer Notes LastModified by Organizat ion Details LastModified Time Tobacco Smoking Status Former Smoker Cynthia Pulido null, achvr IV 07/17/2021 15:14:42 How Many Years Have You Consumed Alcohol? 25 Information not available 03/05/2024 Are You Blind Or Do You Have Difficulty Seeing? No Information not available 03/05/2024 Are You Deaf Or Do You Have Serious Difficulty Hearing? No [email or web address] Information not available 03/05/2024 What Type Of Diet Are You Following? REGULAR Information not available 07/17/2021 When Did You Quit Smoking? 6-10yearssinc elastcigarett e Information not available 03/05/2024 How Many Children Do You Have? 2 Information not available 03/05/2024 Are There Any Occupational Health Risks Where You Work? No [email or web address] Information not available 03/05/2024 What Is Your Relationship Status? [email or web address] Information not available 03/05/2024 Are You Sexually Active? No [email or web address] Information not available 03/05/2024 At What Age Did You Start Smoking Tobacco? 20 [email or web address] Information not available 03/05/2024 What Types Of Sporting Activities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
--- OUTSIDE RECORDS SUMMARY | 2025-03-23 11:16 | XMS_ITS | Clinical Summary ---
Author Organization [facility] Address [address] [place] [address] Care Team Providers Care Marketing Compliance Manager Name Role Phone Arley Egan MD Primary Care Provider [phone] Allergies No known active allergies Medications cetirizine (ZYRTEC) 10 MG tablet Take 1 tablet (10 mg total) by mouth daily. Active ferrous sulfate EC 325 (65 Fe) MG tabletIndication s:Iron deficiency anemia Take 1 tablet (325 mg total) by mouth 3 (three) times a week. 09/21/2024 Active Active Problems Problem Noted Date Diagnosed Date RLS (restless legs syndrome) 10/24/2024 Low grade squamous intraepit helial lesion (LGSIL) on Papanicolaou smear of cervix 09/19/2024 Dysmenorrhea 10/02/2020 Hyperlipidemia 08/24/2013 Resolved Problems Problem Noted Date Diagnosed Date Resolved Date Abdominal pain 12/29/2017 05/09/2018 Eustachian tube dysfunction 08/30/2017 05/09/2018 Gastroenteritis 01/13/2017 05/09/2018 Encounters Date Type Department Care Team Description 03/17/2025 Results Follow-Up [facility] - [place] [address], [address] [place] [address] Arley Egan MD MG SCREENING W DAGOBERTO CARSON DIGI 03/15/2025 11:40 AM CDT - 03/15/2025 11:59 PM CDT Hospital Encounter [facility] Mammography [address] [place] [address] Arley Egan MD Discharge Disposition: Home or Self Care (Routine Discharge) 03/15/2025 Travel 01/23/2025 9:23 AM CDT - 01/23/2025 11:59 PM CDT Hospital Encounter [facility] [address] [place] [address] Alba Manrique DO Discharge Disposition: Home or Self Care (Routine Discharge) 01/23/2025 Results Follow-Up [facility] [address], [address] [place] [address] Arley Egan MD IRON SAT PANEL (IRON,IBC,%SAT), CBC W/DIFF AUTOMATED, VITAMIN D, 25 OH 01/23/2025 Travel 01/22/2025 MyChart Message Enc [facility] [address], [address] [place] [address] Arley Egan MD Vitamin D and Iron from Last 3 Months Immunizations Immunization Administration Dates Next Due Anthrax Vaccine 06/26/2003, 3,07/05/2002,06/21,06/07/2002 Fluzone 6 Months+ Quad (0.5 mL Prefilled Syringe) 04/25/2020,05/12/2018 Hepatitis A (Havrix [address]) 03/28/2003,2001 Influenza (Generic) 03/02/2024 Influenza Adult (Generic) 03/15/2019 MMR (MMRII) 04/04/2002 Measles/Rubella 12/20/2002 Meningococcal (Menomune) 03/15/2002 Polio Opv (Generic) 12/20/2002,04/05/2002 Small Pox 06/19/2003 Td (TDVAX) 08/01/2000 Tdap (Generic) 01/15/2016 Typhoid Vi Polysaccharide Va cc 25 Mcg/0.5Ml Im Soln 12/20/2002,08/01/2000,06/06/2000 Varicella (Varivax) 04/05/2002 Yellow Fever (YF- Vax) 12/07/2001 Social History Tobacco Use Types Packs/Day Years Used Date Smoking Tobacco: Former Cigarettes Q uit: 07/20/2012 Passive Smoke Exposure: Past Smokeless Tobacco: Never Tobacco Cessation:Counseling Given: No Alcohol Use Standard Drinks/Week Comments Yes 3.3 (1 standard drink = 0.6 oz p ure alcohol) PHQ-2 Answer Date Recorded Patient Health Questionnaire-2 Score 0 06/21/2024 Comments No Sex and Gender Information Value Date Recorded Sex Assigned at Female 06/21/2024 2:42 PM SETTLEMENT CLERK Legal Sex Female 8:07 PM CDT Gender Identity Female 06/21/2024 2:42 PM SETTLEMENT CLERK Sexual Orientation Not on file Last Filed Vital Signs Vital Sign Reading Time Taken Comments Blood Pressure 122/76 11/09/2024 9:06 AM CDT Pulse 100 11/09/2024 9:06 AM CDT Temperature 36.6 C (97.9 F) 11/09/2024 9:06 AM CDT Respiratory Rate 18 11/09/2024 9:06 AM CDT Oxygen Saturation 98% 11/09/2024 9:06 AM CDT Inhaled Oxygen Concentration - - Weight 67.9 kg (149 lb 12.8 oz) 11/09/2024 9:06 AM CDT Height 149.9 cm (4' 11) 10/24/2024 1:09 PM CDT Body Mass Index 30.26 10/24/2024 1:09 PM CDT Plan of Treatment Health Maintenance Due Date Last Done Comments Cervical Cancer Screening Pap Smear (Age 30 to 64) Every 3 Years 1982 Hepatitis B Vaccines (1 of 3 - 19+ 3-dose series) 2001 HPV Vaccines (1 - 3-dose SCDM series) 2009 COVID-19 Vaccine ( season) 2025 11/02/2021, 03/09/2021, 02/16/2021 Influenza Adult (#1) 2025 03/02/2024, 04/25/2020, 03/15/2019, Additional history exists Annual Physical 09/19/2025 09/19/2024, 10/02/2020 DTaP, Tdap and Td Vaccines (3 - Td or Tdap) 01/14/2026 01/15/2016, 08/01/2000 Cervical Cancer Screening Pap with HPV Testing (Age 30 to 64) Every 5 Years 07/20/2026 07/20/2021, 07/17/2021 Cervical Cancer Screening with HPV 07/20/2026 Mammogram Screening 03/15/2027 03/15/2025, 03/01/2024, 03/02/2023 Meningococcal Vaccine Aged Out 03/15/2002 No shakila waldemar eligible based on patient's age to complete this topic Hepatitis A Vaccines Aged Out 03/28/2003, 04/04/20 02 No longer eligible based on patient's age to complete this topic PHQ-2 (Physician [place]) Completed 06/21/2024 Hepatitis C Completed 09/19/2024 Meningococcal B Vaccine Aged Out No l onger eligible based on patient's age to complete this topic Pneumococcal Vaccine: Pediatrics (0 to 5 Years) and At-Risk Patients (6 to 49 Years) Aged Out No longer eligible based on patient's age to complete this topic RSV Immunizations Under 20 Months Aged Out No longer eligible based on patient's age to complete this topic Procedures Procedure Name Priority Date/Time Associated Diagnosis Comments MG SCREENING W DAGOBERTO CARSON DIGI Routine 03/15/2025 12:18 PM CDT Screening mammogram for breast cancer VITAMIN D, 25 OH Routine 01/23/2025 9:28 AM CDT Vitamin D deficiency CBC W/DIFF AUTOMATED Routine 01/23/2025 9:28 AM CDT Iron deficiency anemia IRON SAT PANEL (IRON,IBC,%SAT) Routine 01/23/2025 9:28 AM CDT Iron deficiency anemia HEPATITIS C ANTIBODY Routine 09/19/2024 9:08 AM CDT Healthcare maintenance Need for hepatitis C screening test OUTSIDE CYTOPATH CERV/VAG INTERPRET (PAP) 07/20/2021 from Last 3 Months or Most Recently Relevant to Health Maintenance Results * MG SCREENING W DAGOBERTO CARSON DIGI (03/15/2025 12:18 PM CDT) Anatomical Region Laterality Modality Breast Bilateral Mammography 03/15/2025 1:38 PM CDT Impressions 03/15/2025 1:39 PM CDT IMPRESSION: No suspicious change since the previous exams. Recommendation: 1: Routine Screening Bilateral in 1 Year Assessment: ACR BI-RADS 2 - BENIGN FINDING(S) Ordered By: ARLEY EGAN Interpreted By: Raghav Crenshaw MD, 03/15/2025 1:38 PM Narrative 03/15/2025 1:39 PM CDT [address] [address] Examination: Digital screening mammogram with CAD. Clinical history: Asymptomatic patient presents for routine screening. Comparison: 03/01/2024, 03/02/2023. Technique: Bilateral digital mammograms. The exam was interpreted with the use of a computer-aided detection (CAD) system. Additional 3-D tomosynthesis images were acquired. Tissue density: The breasts are heterogeneously dense which may obscure small masses. Findings: The breast tissue is heterogeneously dense. The dense tissue may obscure some lesions mammographically. Benign-appearing calcification noted. No suspicious mass, microcalcification or area of architectural distortion can be identified. From a mammographic standpoint, routine followup in one year would seem adequate. us Arley Egan MD MAMMO Final Result * (ABNORMAL) IRON SAT PANEL (IRON,IBC,%SAT) (01/23/2025 9:28 AM CDT) IRON 49(L) 50.0 - 170.0 MCG/DL 01/23/2025 11:04 AM CDT [facility] IRON BINDING CAPACITY 380 250 - 450 MCG/DL 01/23/2025 11:04 AM CDT [facility] IRON SATURATION 13(L) 20 - 55 % 11:04 AM CDT [facility] 01/23/2025 9:28 AM CDT Alba Manrique DO LABORATORY Final Result [facility] [address] [place] [address], [place] [phone] * (ABNORMAL) CBC W/DIFF AUTOMATED (01/23/2025 9:28 AM CDT) WBC 7.41 4.5 - 11.0 x10'3/uL 01/23/2025 9:50 AM CDT [facility] RBC 4.54 4.20 - 5.40 x10'6/uL 01/23/2025 9:50 AM CDT [facility] HGB 12.2 12.0 - 16.0 G/DL 01/23/2025 9:50 AM CDT [facility] HCT 38.7 38.0 - 48.0 % 01/23/2025 9:50 AM CDT [facility] MCV 85.2 81.0 - 99.0 FL 01/23/2025 9:50 AM CDT [facility] MCH 26.9(L) 27.0 - 31.0 PG 01/23/2025 9:50 AM CDT [facility] MCHC 31.5(L) 32.0 - 36.0 G/DL 01/23/2025 9:50 AM CDT [facility] RDW 15.9(H) 11.5 - 14.5 % 01/23/2025 9:50 AM CDT [facility] PLT 318 130 - 400 x10'3/uL 01/23/2025 9:50 AM CDT [facility] MPV 10.4 9.3 - 12.2 FL 01/23/2025 9:50 AM CDT [facility] DIFFERENTIAL TYPE AUTOMATED DIFFERENTIAL 01/23/2025 9:50 AM CDT [facility] NEUTROPHILS % 72.1 % 01/23/2025 9:50 AM CDT [facility] LYMPHOCYTES % 19.2 % 01/23/2025 9:50 AM CDT [facility] MONOCYTES % 5.8 % 01/23/2025 9:50 AM CDT [facility] EOSINOPHILS 2.0 % 01/23/2025 9:50 AM CDT [facility] BASOPHILS 0.4 % 01/23/2025 9:50 AM CDT [facility] IMMATURE GRANS % 0.5 % 01/24/20 9:50 AM CDT [facility] ABS. NEUTROPHILS 5.34 1.80 - 7.70 x10'3/uL 01/23/2025 9:50 AM CDT [facility] ABS. LYMPHOCYTES 1.42 1.00 - 4.80 x10'3/uL 01/23/2025 9:50 AM CDT [facility] ABS. MONOCYTES 0.43 0.24 - 0.86 x10'3/uL 01/23/2025 9:50 AM CDT [facility] ABS. EOSINOPHILS 0.15 0.04 - 0.36 x10'3/uL 01/23/2025 9:50 AM CDT [facility] ABS. BASOPHILS 0.03 0.01 - 0.08 x10'3/uL 01/23/2025 9:50 AM CDT [facility] ABS. IMMATURE GRANULOCYTES 0.04 0.00 - 0.49 x10'3/uL 01/23/2025 9:50 AM CDT [facility] 01/23/2025 9:28 AM CDT Alba Manrique DO LABORATORY Final Result Performing Organization Address City/[facility]/ZIP Co de Phone Number [facility] [address] [place] [address], [place] [phone] * VITAMIN D, 25 OH (01/23/2025 9:28 AM CDT) VITAMIN D 25 HYDROXY S/P/B 39 30 - 100 NG/ML 01/23/2025 10:24 AM CDT [facility] Comment: INTERPRETATION DEFICIENT <20 INSUFFICIENT 20-29 SUFFICIENT 30-100 01/23/2025 9:28 AM CDT Alba Manrique DO LABORATORY Final Result Performing Organization Address [facility] Co de Phone Number [facility] [address] [place] [address], [place] [phone] * HEPATITIS C ANTIBODY (09/19/2024 9:08 AM CDT) HEPATITIS C AB NON-REACTI VE NON-REACT REJI 09/19/2024 6:34 PM CDT [facility] Comment: ANTIBODIES TO HCV NOT DETECTED. DOES NOT EXCLUDE THE POSSIBILITY OF EXPOSURE TO HCV. 09/19/2024 9:08 AM CDT Alba Manrique DO LABORATORY Final Result Performing Organization Address City/[facility]/ZIP Co de Phone Number [facility] [address] [place] [address], [place] [phone] * OUTSIDE CYTOPATH VAG/CERV PAP WITH HPV (07/20/2021) 07/20/2021 Narrative 07/20/2021 Ordered by an unspecified provider. us Documents Scanned SCANNING Final Result from Last 3 Months or Most Recently Relevant to Health Maintenance Insurance [facility] Care Teams Marketing Compliance Manager Relationship Specialty Start Date End Date Arley Egan MD [address] [place] [address] PCP - General FAMILY PRACTICE 06/06/17
--- OUTSIDE RECORDS SUMMARY | 2025-03-23 11:18 | XMS_ITS | Encounter Summary ---
Author Organization [facility] Address [address] [place] [address] Care Team Providers Care Agricultural And Forestry Supervisor Name Role Phone Shalom Almanza MD Primary Care Provider Encounter Details Date Type Department Care Team (Late st Contact Info) Description 05/13/[address] [facility] Family Medicine - [place] [address] [facility], [address] [place] [phone] Shalom Almanza MD [address] [facility] [address] [place] [address] [phone] Kidney infection Social History Tobacco Use Types Packs/Day Years Used Date Smoking Tobacco: Former Smokeless Tobacco: Never Alcohol Use Standard Drinks/Week Comments Yes 0 (1 standard drink = 0.6 oz pur e alcohol) PHQ-2 Answer Date Recorded Patient Health Questionnaire-2 Score 0 08/02/2022 Comments No Sex and Gender Information Value Date Recorded Sex Assigned at Female 06/21/2024 2:42 PM BRICKLAYER HELPER Legal Sex Female 8:07 PM CDT Gender Identity Female 06/21/2024 2:42 PM BRICKLAYER HELPER Sexual Orientation Not on file documented as of this encounter Plan of Treatment Not on file documented as of this encounter Visit Diagnoses Not on filedocumented in this encounter Additional Health Concerns Infection Onset Date Last Indicated Resolved Time COVID-19 Rule Out 02/17/2024 02/17/2024 02/17/2024 11:05 AM CDT Respiratory Rule Out 11/09/2024 11/09/2024 025 9:25 AM CDT documented as of this encounter Care Teams Agricultural And Forestry Supervisor Relationship Specialty Start Date End Date Shalom Almanza MD [address] [facility] [address] [place] [address] PCP - General FAMILY PRACTICE 06/06/17 documented as of this encounter
--- OUTSIDE RECORDS SUMMARY | 2025-03-23 11:18 | XMS_ITS | Encounter Summary ---
Author Organization [facility] Address [address] [place] [address] Care Team Providers Care Healthcare Prof Name Role Phone Shalom Almanza MD Primary Care Provider [phone] Encounter Details Date Type Department Care Team (Late st Contact Info) Description 03/20/2024 MyC&TV Communicationst Message Enc [facility] Family Medicine - [place] [address] [facility], [address] [place] [phone] Shalom Almanza MD [address] [facility] [address] [place] [address] [phone] Breast Exam Social History Tobacco Use Types Packs/Day Years Used Date Smoking Tobacco: Former Smokeless Tobacco: Never Alcohol Use Standard Drinks/Week Comments Yes 0 (1 standard drink = 0.6 oz pur e alcohol) PHQ-2 Answer Date Recorded Patient Health Questionnaire-2 Score 0 08/02/2022 Comments No Sex and Gender Information Value Date Recorded Sex Assigned at Female 06/21/2024 2:42 PM RANCH SUPERVISOR Legal Sex Female 8:07 PM CDT Gender Identity Female 06/21/2024 2:42 PM RANCH SUPERVISOR Sexual Orientation Not on file documented as of this encounter Plan of Treatment Not on file documented as of this encounter Visit Diagnoses Not on filedocumented in this encounter Additional Health Concerns Infection Onset Date Last Indicated Resolved Time Respiratory Rule Out 11/09/2024 11/09/2024 025 9:25 AM CDT documented as of this encounter Care Teams Healthcare Prof Relationship Specialty Start Date End Date Shalom Almanza MD [address] [address] [place] [address] PCP - General FAMILY PRACTICE 06/06/17 documented as of this encounter
--- OUTSIDE RECORDS SUMMARY | 2025-03-23 11:18 | XMS_ITS | Encounter Summary ---
Author Organization [facility] Address [address] [place] [address] Care Team Providers Care Director Of Quality Improvement Name Role Phone Shalom Almanza MD Primary Care Provider [phone] Encounter Details Date Type Department Care Team (Late st Contact Info) Description 01/22/2025 MyCwishkickert Message Enc [facility] Family Medicine - [place] [address] [facility], [address] [phone] Shalom Almanza MD [address] [place] [address] [address] Vitamin D and Iron Social History Tobacco Use Types Packs/Day Years Used Date Smoking Tobacco: Former Cigarettes Q uit: 07/20/2012 Passive Smoke Exposure: Past Smokeless Tobacco: Never Alcohol Use Standard Drinks/Week Comments Yes 3.3 (1 standard drink = 0.6 oz p ure alcohol) PHQ-2 Answer Date Recorded Patient Health Questionnaire-2 Score 0 06/21/2024 Comments No Sex and Gender Information Value Date Recorded Sex Assigned at Female 06/21/2024 2:42 PM 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
--- OUTSIDE RECORDS SUMMARY | 2025-03-23 11:18 | XMS_ITS | Encounter Summary ---
Author Organization [facility] Address [address] [place] [address] Care Team Providers Care Mobile Home Set Up Person Name Role Phone Shalom Almanza MD Primary Care Provider [phone] Encounter Details Date Type Department Care Team (Late st Contact Info) Description 09/07/2021 MyChart Message Enc [facility] Family Medicine - [place] [address] [facility], [address] [place] [phone] Shalom Almanza MD [address] [facility] [address] [place] [address] [phone] Chest Congestion Social History Tobacco Use Types Packs/Day Years Used Date Smoking Tobacco: Former Smokeless Tobacco: Never Alcohol Use Standard Drinks/Week Comments Yes 0 (1 standard drink = 0.6 oz pur e alcohol) PHQ-2 Answer Date Recorded PHQ-2 Score - If the patient scores above 3, please move on to questions 3-9 0 09/08/2021 Comments No Sex and Gender Information Value Date Recorded Sex Assigned at Female 06/21/2024 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 No / Unsure 09/07/2021 2:30 PM CDT documented as of this encounter Progress Notes * Shalom Almanza MD - 09/07/2021 12:55 PM CDT appointment documented in this encounter Plan of Treatment Not on file documented as of this encounter Visit Diagnoses Not on filedocumented in this encounter Additional Health Concerns Infection Onset Date Last Indicated Resolved Time COVID-19 Rule Out 02/17/2024 02/17/2024 02/17/2024 11:05 AM CDT Respiratory Rule Out 11/09/2024 11/09/2024 025 9:25 AM CDT documented as of this encounter Care Teams Mobile Home Set Up Person Relationship Specialty Start Date End Date Shalom Almanza MD [address] [facility] [address] [place] [address] PCP - General FAMILY PRACTICE 06/06/17 documented as of this encounter
--- OUTSIDE RECORDS SUMMARY | 2025-03-23 11:18 | XMS_ITS | Encounter Summary ---
Author Organization [facility] Address [address] [place] [address] Care Team Providers Care Hot Dog Vendor Name Role Phone Shalom Almanza MD Primary Care Provider [phone] Encounter Details Date Type Department Care Team (Late st Contact Info) Description 10/21/2024 MyChart Message Enc [facility] Family Medicine - [place] [address] [facility], [address] [place] [address] Shalom Almanza MD [address] [facility] [address] [place] [address] [phone] Ankle Social History Tobacco Use Types Packs/Day Years Used Date Smoking Tobacco: Former Cigarettes Q uit: 07/20/2012 Smokeless Tobacco: Never Alcohol Use Standard Drinks/Week Comments Yes 3.3 (1 standard drink = 0.6 oz p ure alcohol) PHQ-2 Answer Date Recorded Patient Health Questionnaire-2 Score 0 06/21/2024 Comments No Sex and Gender Information Value Date Recorded Sex Assigned at Female 06/21/2024 2:42 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 Legal Sex Female 8:07 PM CDT Gender Identity Female 06/21/2024 2:42 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 Sexual Orientation Not on file documented as of this encounter Plan of Treatment Not on file documented as of this encounter Visit Diagnoses Not on filedocumented in this encounter Additional Health Concerns Infection Onset Date Last Indicated Resolved Time Respiratory Rule Out 11/09/2024 11/09/2024 025 9:25 AM CDT documented as of this encounter Care Teams Hot Dog Vendor Relationship Specialty Start Date End Date Shalom Almanza MD [address] [facility] [address] [place] [address] PCP - General FAMILY PRACTICE 06/06/17 documented as of this encounter
--- OUTSIDE RECORDS SUMMARY | 2025-03-23 11:18 | XMS_ITS | Encounter Summary ---
Author Organization [facility] Address [address] [place] [address] Care Team Providers Care X Ray Equipment Tester Name Role Phone Shalom Almanza MD Primary Care Provider [phone] Encounter Details Date Type Department Care Team (Late st Contact Info) Description 06/13/2023 MyChart Message Enc [facility] Family Medicine - [place] [address] [facility], [address] [place] [phone] Shalom Almanza MD [address] [facility] [address] [place] [address] sinusitis Social History Tobacco Use Types Packs/Day Years Used Date Smoking Tobacco: Former Smokeless Tobacco: Never Alcohol Use Standard Drinks/Week Comments Yes 0 (1 standard drink = 0.6 oz pur e alcohol) PHQ-2 Answer Date Recorded Patient Health Questionnaire-2 Score 0 08/02/2022 Comments No Sex and Gender Information Value Date Recorded Sex Assigned at Female 06/21/2024 2:42 PM SCALE EXPERT Legal Sex Female 8:07 PM CDT Gender Identity Female 06/21/2024 2:42 PM SCALE EXPERT Sexual Orientation Not on file documented as [...] documented as of this encounter Care Teams X Ray Equipment Tester Relationship Specialty Start Date End Date Shalom Almanza MD [address] [facility] [address] [place] [address] PCP - General FAMILY PRACTICE 06/06/17 documented as of this encounter
[2025-03-23 11:21] VITALS: BP 115/71; PULSE 87; RESP 14; O2SAT 100
== END 2025-03-23 11:22 | disposition home or self-care (01) ==
PROVIDERS: Emergency Provider Emergency Medicine; PCP Family Medicine
DX: S93.402A Sprain of unspecified ligament of left ankle, initial encounter (principal); X50.0XXA Overexertion from strenuous movement or load, initial encounter
CPT/HCPCS: 73610; 99283